=== PATIENT | female | born 1980 | race Caucasian/White ===

== ENCOUNTER → 2019-12-22 | Outpatient (CLI) | payer OTHER ==
--- NOTE | 2019-12-22 15:43 | Diagnostic Imaging Report ---
INDICATION: Ankylosing spondylitis family history as well as joint pain. TIME OF EXAM: 2:56 PM. TECHNIQUE: Frontal and lateral views of the thoracic spine were obtained. FINDINGS: The curvature and alignment of the thoracic spine are normal. The vertebral body heights are well-maintained. No acute compression fractures are identified. No ankylosis is identified to suggest ankylosing spondylitis. The pedicles and paraspinous line are intact. IMPRESSION: No acute bony abnormality is detected. Dictated by: Dictated on workstation # [id number]
--- NOTE | 2019-12-22 15:44 | Diagnostic Imaging Report ---
INDICATION: Joint pain and family history of ankylosing spondylitis. TIME OF EXAM: 3:01 PM. TECHNIQUE: Multiple views of the sacroiliac joints were obtained. FINDINGS: The sacroiliac joints are unremarkable. No significant sclerosis, osseous erosion, or ankylosis is seen. IMPRESSION: Unremarkable sacroiliac joints. Dictated by: Dictated on workstation # [id number]
== END ==
LOC: RAD 14:34
PROVIDERS: ATTEND Nurse Practitioner Family
DX: M53.3 Sacrococcygeal disorders, not elsewhere classified (principal); M54.6 Pain in thoracic spine; Z82.69 Family history of other diseases of the musculoskeletal system and connective tissue
CPT/HCPCS: 36415; 72072; 72202; 85652; 86141; 86812

== ENCOUNTER → 2021-03-11 | Outpatient (CLI) | payer OTHER ==
[2021-03-11 16:14] LABS: HEMATOCRIT 40 % (35-52); HEMOGLOBIN 13.5 g/dL (11.5-16.0); MEAN CORPUSCULAR HEMOGLOBIN 32 pg (25-34); MEAN CORPUSCULAR HGB CONC 34 g/dL (32-36); MEAN CORPUSCULAR VOLUME 94 fL (80-99); MEAN PLATELET VOLUME 9.5 fL (9.0-12.2); PLATELET COUNT 285 10^3/uL (130-400); WHITE BLOOD COUNT 11.3 10^3/uL (4.3-11.0)
[2021-03-11 16:32] LABS: ALBUMIN 4.3 GM/DL (3.2-4.5); BILIRUBIN,TOTAL 0.3 MG/DL (0.1-1.0); CALCIUM 9.1 MG/DL (8.5-10.1); CREATININE SERUM 0.8 MG/DL (0.60-1.30); POTASSIUM 3.4 MMOL/L (3.6-5.0); TOTAL PROTEIN 6.7 GM/DL (6.4-8.2)
--- NOTE | 2021-03-11 17:03 | Diagnostic Imaging Report ---
INDICATION: COVID infection with dyspnea and cough. PA and lateral views of the chest are obtained. COMPARISON: No previous study is available for comparison at this time. FINDINGS: Heart size and pulmonary vasculature are within normal limits, and the lungs are clear, bilaterally. IMPRESSION: Unremarkable chest. Dictated by: Dictated on workstation # [id number]
== END ==
LOC: RAD 15:47
PROVIDERS: ATTEND Nurse Practitioner Family
DX: R05.9 Cough, unspecified (principal); R06.00 Dyspnea, unspecified; R06.02 Shortness of breath; R07.9 Chest pain, unspecified; Z86.16 Personal history of COVID-19
CPT/HCPCS: 36415; 71046; 80053; 84443; 85027; 85379

== ENCOUNTER → 2021-04-22 | Outpatient (CLI) | payer OTHER ==
--- NOTE | 2021-04-22 14:07 | Diagnostic Imaging Report ---
Indication: Left breast pain. No prior studies are available for comparison. This a baseline study. 2-D and 3-D bilateral diagnostic mammography was performed with CAD. Both breasts are heterogeneously dense, limiting the sensitivity of mammography. There is an ovoid circumscribed mass slightly inner left breast 5 cm from the nipple. No other masses are seen. There are benign calcifications bilaterally. No malignant-appearing microcalcifications are seen. Axillae are unremarkable. IMPRESSION: BI-RADS 0 Ovoid circumscribed density in the left breast slightly medial to the nipple line 5 cm from the nipple, perhaps a cyst. Further evaluation of this area with ultrasound is recommended. In addition, ultrasound evaluation of the area of pain in left breast is recommended and will be performed today. ACR BI-RADS Category 0: Incomplete. (Needs additional imaging evaluation). Result letter will be mailed to the patient. Note: At least 10% of breast cancer is not imaged by mammography. Dictated by: Dictated on workstation # [id number]
--- NOTE | 2021-04-22 14:16 | Diagnostic Imaging Report ---
Indication: Left breast pain and left breast density. Correlation is made with diagnostic mammogram earlier same day. Sonographic interrogation of the area of pain correlates to the retroareolar region. There is some ductal ectasia but no discrete mass. In addition, the upper inner left breast was evaluated at the area of focal density. There is a ovoid, circumscribed simple appearing cyst at the 10:00 location, 4 cm from the nipple measuring 2.2 x 0.8 x 2.0 cm. This correlates with the mammographic density. No solid masses are detected. IMPRESSION: BI-RADS Category 2 1. Ductal ectasia in the retroareolar left breast area of pain but no definite intraductal mass is detected. 2. Simple cyst 10:00 location, 4 cm from the nipple corresponding with the mammographic density. The patient may return to routine annual screening mammography. ACR BI-RADS Category 2: Benign findings. Dictated by: Dictated on workstation # [id number]
== END ==
LOC: RAD 13:05
PROVIDERS: ATTEND Nurse Practitioner Family
DX: N60.02 Solitary cyst of left breast (principal)
CPT/HCPCS: 76642; 77066; G0279; 77062

== ENCOUNTER → 2022-05-26 | Outpatient (CLI) | payer OTHER ==
--- NOTE | 2022-05-26 13:18 | Diagnostic Imaging Report ---
Indication: Routine screening. Comparison is made with prior mammogram from 04/22/2021. 2-D and 3-D bilateral screening mammography was performed with CAD. Both breasts are heterogeneously dense, limiting the sensitivity of mammography. Ovoid circumscribed density in the medial left breast appears to be slightly larger. This was shown previously by ultrasound to represent a cyst. Circumscribed density in the upper slightly inner right breast is also noted, suggestive of a cyst. No spiculated masses are seen. No malignant-appearing microcalcifications are seen. There are benign calcifications. Axillae are unremarkable. IMPRESSION: BI-RADS Category 2 No mammographic features suspicious for malignancy are identified. ACR BI-RADS Category 2: Benign findings. Result letter will be mailed to the patient. Note: At least 10% of breast cancer is not imaged by mammography. Dictated by: Dictated on workstation # [id number]
== END ==
LOC: RAD 10:48
PROVIDERS: ATTEND Nurse Practitioner
DX: Z12.31 Encounter for screening mammogram for malignant neoplasm of breast (principal)
CPT/HCPCS: 77063; 77067